=== PATIENT | male | born 2000 | race Caucasian/White ===

== ENCOUNTER 2020-08-07 11:31 | Emergency (ER) | payer OTHER ==
[~2020-08-07] VITALS: Ht 182.9 cm; Wt 102.3 kg
--- NOTE | 2020-08-07 12:10 | REP ---
INDICATION: left testicular pain COMPARISON: None. TECHNIQUE: Golden scale and color Doppler evaluation using linear and curved array transducer with color Doppler evaluation. FINDINGS: The testicles and epididymi are relatively normal in contour, size, echogenicity, vascularity and overall appearance. Incidental 2 mm right epididymal head cyst noted. There is no evidence for intratesticular mass lesion, infectious/inflammatory process, or torsion. No obvious hydroceles or varicoceles are identified. Right testicle measures 4.2 x 1.9 x 2.9 cm. Left testicle measures 4.2 x 1.9 x 2.6 cm. IMPRESSION: Essentially normal scrotal ultrasound. <Electronically signed by Stefano Pierce > 08/07/20 [id number]
--- NOTE | 2020-08-07 13:16 | REP ---
INDICATION: left side inguinal hernia r/o COMPARISON: None. TECHNIQUE: Realtime grayscale ultrasound examination using linear high-frequency transducer. FINDINGS: Directed ultrasound examination of the left inguinal canal demonstrates normal structures. No evidence for hernia, fluid collection or mass lesion. IMPRESSION: No abnormality. <Electronically signed by Stefano Pierce > 08/07/20 [id number]
[2020-08-07] MEDS ORDERED: KETOROLAC TROMETHAMINE 10 MG TAB PO ONE (13:30)
[2020-08-07 13:49] LABS: CHLAMYDIA DNA AMPLIFICATION NEGATIVE (NEGATIVE); GC DNA AMPLIFICATION NEGATIVE (NEGATIVE)
[2020-08-07 13:53] VITALS: BP 130/82
== END 2020-08-07 13:59 | disposition home or self-care (01) ==
LOC: M ED 11:31
DX: N50.812 Left testicular pain (principal); Z77.098 Contact with and (suspected) exposure to other hazardous, chiefly nonmedicinal, chemicals